=== PATIENT | male | born 1995 | race African-American/Black ===

== ENCOUNTER 2025-02-25 01:53 | Emergency (ER) | payer MEDICAID, OTHER ==
[~2025-02-25] VITALS: Ht 188 cm; Wt 79.0 kg
[2025-02-25 02:11] VITALS: BP 139/95; PULSE 86; RESP 16; TEMP 37; O2SAT 100
[2025-02-25] MEDS: IBUPROFEN 600MG TABLET PO ONE (04:45)
== END 2025-02-25 04:56 ==
LOC: ER 02:05
DX: M54.6 Pain in thoracic spine (principal); Z02.89 Encounter for other administrative examinations
CPT/HCPCS: 99283